=== PATIENT | female | born 1955 | race Hispanic/Latino ===

== ENCOUNTER 2017-08-10 08:50 | Emergency (ER) | payer SELFPAY ==
[2017-08-10] MEDS ORDERED: TRAMADOL HCL 50 MG TABLET ONE (09:14)
== END 2017-08-10 09:41 | disposition home or self-care (01) ==
LOC: EDH 08:50
DX: S52.592A Other fractures of lower end of left radius, initial encounter for closed fracture (principal); S52.615A Nondisplaced fracture of left ulna styloid process, initial encounter for closed fracture; E11.9 Type 2 diabetes mellitus without complications; I10 Essential (primary) hypertension; E78.5 Hyperlipidemia, unspecified; W01.0XXA Fall on same level from slipping, tripping and stumbling without subsequent striking against object, initial encounter; Y93.01 Activity, walking, marching and hiking; Y92.89 Other specified places as the place of occurrence of the external cause; Y99.8 Other external cause status
CPT/HCPCS: 73110

== ENCOUNTER 2018-07-28 13:54 | Emergency (ER) | payer MEDICAID, OTHER ==
[~2018-07-28 13:54] MED LIST: ASPI-555 PO; ATOR10 PO; GLYB5TAB8 PO; LISI-617 PO; METO25TA6 PO
== END 2018-07-28 16:10 | disposition home or self-care (01) ==
LOC: EDH 13:54
DX: Z04.1 Encounter for examination and observation following transport accident (principal); I10 Essential (primary) hypertension; I25.10 Atherosclerotic heart disease of native coronary artery without angina pectoris; E11.9 Type 2 diabetes mellitus without complications; E78.5 Hyperlipidemia, unspecified; Z90.710 Acquired absence of both cervix and uterus; Z98.890 Other specified postprocedural states; V49.59XA Passenger injured in collision with other motor vehicles in traffic accident, initial encounter; Y93.89 Activity, other specified; Y92.410 Unspecified street and highway as the place of occurrence of the external cause; Y99.8 Other external cause status

== ENCOUNTER 2018-12-21 14:19 | Emergency (ER) | payer MEDICAID ==
[2018-12-21] MEDS ORDERED: ONDANSETRON HCL 4 MG/2 ML VIAL ONE (14:51)
[2018-12-21] MEDS ORDERED: MORPHINE SULFATE 4 MG/1ML SYG ONE (14:52)
== END 2018-12-21 16:18 | disposition home or self-care (01) ==
LOC: EDH 14:19
DX: S80.02XA Contusion of left knee, initial encounter (principal); I25.810 Atherosclerosis of coronary artery bypass graft(s) without angina pectoris; E11.9 Type 2 diabetes mellitus without complications; E78.5 Hyperlipidemia, unspecified; I10 Essential (primary) hypertension; W10.8XXA Fall (on) (from) other stairs and steps, initial encounter; Y93.01 Activity, walking, marching and hiking; Y92.89 Other specified places as the place of occurrence of the external cause; Y99.8 Other external cause status
CPT/HCPCS: 29505; 73562; 96374; 96375; 99284; J2270; J2405

== ENCOUNTER → 2021-12-10 | Outpatient (CLI) | payer MEDICARE ==
[~2021-12-10] MED LIST changes: -ASPI-555 PO; +ASPI-556 PO; -LISI-617 PO; +LISI5TAB21 PO
== END | disposition home or self-care (01) ==
LOC: RAH 14:16
PROVIDERS: ATTEND Internal Medicine Cardiovascular Disease
DX: R07.9 Chest pain, unspecified (principal)
CPT/HCPCS: 71250

== ENCOUNTER 2022-01-02 09:00 | Observation (INO) | payer MEDICARE ==
[~2022-01-02] VITALS: Ht 165.1 cm; Wt 64.1 kg
[~2022-01-02 09:00] MED LIST changes: -ATOR10 PO; -GLYB5TAB8 PO; -LISI5TAB21 PO; -METO25TA6 PO
[2022-01-03 13:14] LABS: HEMATOCRIT 39.5 % (36-48); MEAN CORPUSCULAR HEMOGLOBIN 29.9 pg (27.0-33.0); MEAN CORPUSCULAR HGB CONC 32.9 g/dL (32.0-36.0); MEAN CORPUSCULAR VOLUME 90.8 fL (79-99); RED BLOOD CELL COUNT(AUTO) 4.35 MIL/uL (4.00-5.50); RED CELL DISTRIBUTION WIDTH 13.2 % (11.0-15.5); WHITE BLOOD COUNT (AUTO) 9.5 K/uL (4.8-10.8)
[2022-01-03 13:32] LABS: INR 0.95 (0.85-1.15); PROTHROMBIN TIME 10.4 SEC (9.6-11.6)
[2022-01-03 13:34] LABS: PARTIAL THROMBOPLASTIN TIME 27.3 SEC (26.3-35.5)
[2022-01-03 13:44] LABS: CREATININE 0.6 mg/dL (0.5-1.5); POTASSIUM 3.5 mmol/L (3.5-5.1)
[2022-01-03 15:41] VITALS: BP 148/74
[2022-01-03] MEDS ORDERED: CANA300T PO (15:52)
[2022-01-03] MEDS ORDERED: METO25TA6 PO (16:11)
[2022-01-03] MEDS ORDERED: ATOR10 PO (16:11)
[2022-01-03] MEDS ORDERED: INSU100V12 SQ (16:11)
[2022-01-03] MEDS ORDERED: MVIT PO (16:11)
[2022-01-03] MEDS ORDERED: LISI30TA4 PO (16:11)
[2022-01-06] VITALS (28 sets, daily range): BP systolic 121–173; BP diastolic 60–91
[2022-01-06] MEDS ORDERED: CEFAZOLIN SODIUM 1 GM VIAL IVPB SCH (06:00)
[2022-01-06] MEDS ORDERED: BUPIVACAINE/PF 0.25% 30ML VIAL IJ ONE (08:19)
[2022-01-06] MEDS ORDERED: LIDOCAINE HCL 1% 20 ML VIAL ONE (08:19)
[2022-01-06] MEDS ORDERED: 0.9%NACL 1000ML 1,000 ML IV ONE (08:41)
[2022-01-06] MEDS ORDERED: ONDANSETRON 4MG INJ IVP PRN (09:30)
[2022-01-06] MEDS ORDERED: ACETAMINOPHEN 325 MG TAB PO PRN (09:30)
[2022-01-06] MEDS ORDERED: LACTULOSE 20 GM/30 ML UDCUP PO PRN (09:30)
[2022-01-06] MEDS ORDERED: TRAMADOL HCL 50 MG TABLET PO PRN (09:30)
[2022-01-06] MEDS ORDERED: MIDAZOLAM HCL 1 MG/ML 2ML VIAL ONE (09:57)
[2022-01-06] MEDS ORDERED: PROPOFOL 10 MG/ML 20ML VIAL IV ONE (09:58)
[2022-01-06] MEDS ORDERED: ROCURONIUM 10MG/1ML SYR 10 MG/ML ML ONE (09:58)
[2022-01-06] MEDS ORDERED: ONDANSETRON 4MG INJ ONE ×2 (09:58→10:11)
[2022-01-06] MEDS ORDERED: FENTANYL CITRATE PF 50 MCG/1 ML 2ML VIAL ONE (09:58)
[2022-01-06] MEDS ORDERED: CEFAZOLIN SODIUM 2 GM VIAL IVPB ONE (10:28)
[2022-01-06] MEDS ORDERED: EPHEDRINE SULFATE 50 MG/ML AMPULE ONE (10:53)
[2022-01-06] MEDS ORDERED: GLYCOPYRROLATE 1 MG/5 ML SYRINGE ONE (11:11)
[2022-01-06] MEDS ORDERED: NEOSTIGMINE 5MG/5ML SYR IV ONE (11:11)
[2022-01-06] MEDS: TRAMADOL HCL 50 MG TABLET PO PRN ×2 (13:54→20:55)
[2022-01-06] MEDS: CEFAZOLIN SODIUM 1 GM VIAL IVP SCH (17:59)
[2022-01-06] MEDS: INSULIN GLARGINE 100 UNITS/ML 10 ML VIAL SQ SCH (20:17)
[2022-01-06] MEDS: ATORVASTATIN 10 MG TABLET PO SCH (20:55)
[2022-01-06] MEDS: METOPROLOL TARTRATE 25 MG TAB PO SCH (20:59)
[2022-01-07] VITALS (12 sets, daily range): BP systolic 124–154; BP diastolic 58–72
[2022-01-07] MEDS: CEFAZOLIN SODIUM 1 GM VIAL IVP SCH ×2 (03:01→11:09)
[2022-01-07] MEDS: ASPIRIN 81 MG EC TAB PO SCH (07:46)
[2022-01-07] MEDS: LISINOPRIL 20 MG TABLET PO SCH (07:46)
[2022-01-07] MEDS: INVOKANA 300 MG PO SCH (07:47)
[2022-01-07] MEDS: MULTIVITAMIN TABLET PO SCH (07:47)
[2022-01-07] MEDS: METOPROLOL TARTRATE 25 MG TAB PO SCH ×2 (08:30→20:27)
[2022-01-07] MEDS: INSULIN GLARGINE 100 UNITS/ML 10 ML VIAL SQ SCH ×2 (09:15→21:00)
[2022-01-07] MEDS: TRAMADOL HCL 50 MG TABLET PO PRN (13:26)
[2022-01-07] MEDS: ATORVASTATIN 10 MG TABLET PO SCH (20:20)
[2022-01-08 00:15] VITALS: BP 132/66
[2022-01-08 05:46] VITALS: BP 133/71
[2022-01-08] MEDS: MULTIVITAMIN TABLET PO SCH (07:58)
[2022-01-08] MEDS: ASPIRIN 81 MG EC TAB PO SCH (07:58)
[2022-01-08] MEDS: LISINOPRIL 20 MG TABLET PO SCH (07:59)
[2022-01-08] MEDS: INVOKANA 300 MG PO SCH (07:59)
[2022-01-08 08:00] VITALS: BP 134/67
[2022-01-08] MEDS: INSULIN GLARGINE 100 UNITS/ML 10 ML VIAL SQ SCH (08:03)
[2022-01-08 11:37] VITALS: BP 138/65
== END 2022-01-08 14:46 | disposition home or self-care (01) ==
LOC: EDSTATUS 09:00 → DAHIP 01-06 07:32 → 2BH 01-06 12:13 → 2DH 01-07 15:51
PROVIDERS: ADMIT Thoracic Surgery (Cardiothoracic Vascular Surgery); ATTEND Thoracic Surgery (Cardiothoracic Vascular Surgery)
DX: T85.79XA Infection and inflammatory reaction due to other internal prosthetic devices, implants and grafts, initial encounter (principal); Z20.822 Contact with and (suspected) exposure to COVID-19; I10 Essential (primary) hypertension; R00.1 Bradycardia, unspecified; E78.00 Pure hypercholesterolemia, unspecified; I25.10 Atherosclerotic heart disease of native coronary artery without angina pectoris; E11.9 Type 2 diabetes mellitus without complications; E78.5 Hyperlipidemia, unspecified; F41.9 Anxiety disorder, unspecified; Z95.1 Presence of aortocoronary bypass graft; Z79.899 Other long term (current) drug therapy
CPT/HCPCS: 80048; 85027; 85610; 85730; 86850 ×2; 86900 ×2; 86901 ×2; 36415 ×2; 71045; 93005; 10121; 96374; 82948 ×5; 87426; 96376; A6260; G0378 ×53; A4663; A4606; J3010; J0690 ×5; J3490 ×3; J2710; J7030; J2250; J2704; J2405 ×2; A4649; A5120; A4215; A4223; A4222; A4221; A6210; A9272

== ENCOUNTER → 2022-10-28 | Outpatient (CLI) | payer MEDICARE ==
[~2022-10-28] MED LIST changes: +ATOR10 PO; +CANA300T PO; +INSU100V12 SQ; +LISI30TA4 PO; +MVIT PO
== END | disposition home or self-care (01) ==
LOC: SHCH 15:25
PROVIDERS: ATTEND Internal Medicine Cardiovascular Disease
DX: I25.10 Atherosclerotic heart disease of native coronary artery without angina pectoris (principal); I25.810 Atherosclerosis of coronary artery bypass graft(s) without angina pectoris; R06.09 Other forms of dyspnea; E78.5 Hyperlipidemia, unspecified; E11.9 Type 2 diabetes mellitus without complications; I10 Essential (primary) hypertension
CPT/HCPCS: 93306